=== PATIENT | female | born 1960 | race Caucasian/White ===

== ENCOUNTER 2024-06-04 03:31 | Observation (INO) | payer OTHER ==
[2024-06-04] MEDS ORDERED: morphine SULFATE 4 MG/ML VIAL ONE (03:59)
[2024-06-04] MEDS: morphine CARPU-JECT 4 MG/1 ML DISP.SYRIN IVPUSH ONE (04:20)
[2024-06-04 04:26] LABS: HEMATOCRIT 43.2 % (32.4-45.2); HEMOGLOBIN 14.2 GM/dL (10.7-15.3); MCH 30.2 pg (25.7-33.7); MCHC 32.8 g/dl (32.0-36.0); MEAN CELL VOLUME 91.9 fl (80-96); MEAN PLT VOLUME 8.1 fl (7.5-11.1); PLATELET COUNT 255 10^3/uL (134-434); RDW 14.2 % (11.6-15.6); WHITE BLOOD COUNT 9.5 K/mm3 (4.0-10.0)
[2024-06-04 04:48] LABS: POTASSIUM 4.4 mmol/L (3.5-5.1)
[2024-06-04 04:50] LABS: CALCIUM 9.2 mg/dL (8.5-10.1)
[2024-06-04 04:52] LABS: MAGNESIUM 1.9 mg/dL (1.8-2.4)
[2024-06-04 04:53] LABS: CREATININE 0.7 mg/dL (0.55-1.3)
[2024-06-04 04:55] LABS: BILIRUBIN,TOTAL 0.3 mg/dL (0.2-1); TOT PROT 7.6 g/dl (6.4-8.2)
[2024-06-04 04:56] LABS: PHOSPHOROUS 3.2 mg/dL (2.5-4.9)
[2024-06-04] MEDS ORDERED: ACETAMINOPHEN 500 MG TABLET (FP) PO PRN (05:16)
[2024-06-04 06:21] LABS: LACTIC ACID 3.4 mmol/L (0.4-2.0)
[2024-06-04 06:23] LABS: URINE APPEARANCE Clear; URINE BILIRUBIN Negative (NEGATIVE); URINE COLOR Yellow; URINE GLUCOSE (UA) Negative (NEGATIVE); URINE KETONE Negative (NEGATIVE); URINE LEUK ESTERASE 1+ (NEGATIVE); URINE NITRITE Negative (NEGATIVE); URINE PROTEIN Negative (NEGATIVE); URINE UROBILINOGEN 0.2 mg/dL (0.2-1.0)
[2024-06-04] MEDS: LACTATED RINGERS SOLUTION 1000 ML INFUS.BAG IV ONE (06:55)
[2024-06-04] MEDS: SODIUM CHLORIDE 1,000 ML IV STA (08:00)
[2024-06-04] MEDS ORDERED: MORPHINE SULFATE 2 MG/ML SYRINGE ONE (09:05)
[2024-06-04] MEDS: MORPHINE SULFATE 2 MG/ML SYRINGE IVPUSH PRN (09:13)
[2024-06-04] MEDS: LIDOCAINE 5% TOPICAL PATCH TP SCH (10:14)
[2024-06-04 10:38] LABS: LACTIC ACID 3.7 mmol/L (0.4-2.0)
[2024-06-04] MEDS ORDERED: LOSARTAN POTASSIUM 25 MG TABLET ONE (10:43)
[2024-06-04] MEDS: LOSARTAN POTASSIUM 50 MG TABLET PO SCH (10:52)
[2024-06-04 11:34] LABS: LACTIC ACID 4.2 mmol/L (0.4-2.0)
[2024-06-04] MEDS ORDERED: ACETAMINOPHEN 325 MG TABLET (FP) ONE (12:45)
[2024-06-04] MEDS: ACETAMINOPHEN 500 MG TABLET (FP) PO PRN (12:55)
[2024-06-04 14:05] LABS: LACTIC ACID 3.2 mmol/L (0.4-2.0)
[2024-06-04 14:28] VITALS: BMI 28.9
[2024-06-04] MEDS: POTASSIUM CHLORIDE 10 MEQ in SODIUM CHLORIDE 0.45% 1,000 ML IVPB SCH (18:15)
[2024-06-04] MEDS: LIDOCAINE PATCH REMOVAL MC SCH (21:27)
[2024-06-04] MEDS: PIPERACILLIN/TAZOB 4.5 GM 4.5 GM in DEXTROSE 5%-WATER 100 ML IVPB SCH (22:15)
[2024-06-05] MEDS: oxyCODONE HCL 5 MG TABLET PO PRN (10:43)
[2024-06-05 11:10] LABS: BASO % 0.5 % (0-2.0); EOS % 0.2 % (0-4.5); HEMATOCRIT 41.2 % (32.4-45.2); HEMOGLOBIN 13.5 GM/dL (10.7-15.3); LYMPH % 14.5 % (8-40); MCHC 32.9 g/dl (32.0-36.0); MEAN CELL VOLUME 91.4 fl (80-96); MEAN PLT VOLUME 8.3 fl (7.5-11.1); MONO % 4.4 % (3.8-10.2); NEUT % 80.4 % (42.8-82.8); PLATELET COUNT 245 10^3/uL (134-434); RBC 4.51 M/mm3 (3.60-5.2); RDW 14.1 % (11.6-15.6); WHITE BLOOD COUNT 13.3 K/mm3 (4.0-10.0)
[2024-06-05 11:22] LABS: CHLORIDE 102 mmol/L (98-107); POTASSIUM 3.9 mmol/L (3.5-5.1); SODIUM 137 mmol/L (136-145)
[2024-06-05 11:24] LABS: CALCIUM 8.5 mg/dL (8.5-10.1)
[2024-06-05 11:25] LABS: ALBUMIN 3.4 g/dl (3.4-5.0); ANION GAP 8 mmol/L (4-13); CO2 27 mmol/L (21-32); GLUCOSE,RANDOM 178 mg/dL (74-106)
[2024-06-05 11:28] LABS: CREATININE 0.8 mg/dL (0.55-1.3); SGOT/AST 12 U/L (15-37); SGPT/ALT 18 U/L (13-61)
[2024-06-05] MEDS: LACTATED RINGERS SOLUTION 1,000 ML/1,000 ML INFUS.BAG IV SCH (11:28)
[2024-06-05 11:29] LABS: BILIRUBIN,TOTAL 0.4 mg/dL (0.2-1)
[2024-06-05 11:30] LABS: TOT PROT 6.4 g/dl (6.4-8.2)
[2024-06-05 11:31] LABS: ALK PHOS 92 U/L (45-117)
[2024-06-05 11:55] LABS: ERYTHROCYTE SEDIMENTATION RATE 7 mm/hr (0-30)
[2024-06-06] MEDS: HYDROmorphone HCL CARPU-JECT 2 MG/1 ML DISP.SYRIN IVPUSH ONE (04:23)
[2024-06-06] MEDS: ENOXAPARIN NA (PORCINE) 40 MG/0.4 ML DISP.SYRIN SQ SCH (09:52)
[2024-06-06] MEDS: PIPERACILLIN/TAZOB 4.5 GM 4.5 GM/100 ML BAG IVPB SCH (10:17)
[2024-06-06] MEDS: DEXAMETHASONE SOD PHOSPHATE 10 MG/1 ML VIAL IVPUSH SCH (12:30)
[2024-06-06] MEDS: oxyCODONE HCL 5 MG TABLET PO PRN (15:00)
[2024-06-06] MEDS: PIPERACILLIN/TAZOB 3.375 GM 50 ML IVPB SCH (21:10)
[2024-06-07] MEDS: LOSARTAN POTASSIUM 25 MG TABLET PO SCH (09:26)
[2024-06-07 09:55] LABS: HEMATOCRIT 42.8 % (32.4-45.2); HEMOGLOBIN 14.2 GM/dL (10.7-15.3); MCH 30.5 pg (25.7-33.7); MCHC 33.3 g/dl (32.0-36.0); MEAN CELL VOLUME 91.8 fl (80-96); MEAN PLT VOLUME 8.3 fl (7.5-11.1); PLATELET COUNT 286 10^3/uL (134-434); RBC 4.66 M/mm3 (3.60-5.2); RDW 13.5 % (11.6-15.6); WHITE BLOOD COUNT 6.7 K/mm3 (4.0-10.0)
[2024-06-07 10:12] LABS: POTASSIUM 4.4 mmol/L (3.5-5.1)
[2024-06-07 10:18] LABS: CALCIUM 9.1 mg/dL (8.5-10.1)
[2024-06-07 10:22] LABS: CREATININE 0.6 mg/dL (0.55-1.3)
[2024-06-07] MEDS: LORazepam 2 MG/ML SDV VIAL IVPUSH ONE (22:40)
[2024-06-08] MEDS ORDERED: MECLIZINE HCL 12.5 MG TABLET PO PRN (15:39)
[2024-06-08] MEDS: LORazepam 2 MG/ML SDV VIAL IVPUSH ONE (22:50)
[2024-06-09 07:00] VITALS: RESP 18
[2024-06-09] MEDS: LORazepam 2 MG/ML SDV VIAL IVPUSH ONE (07:00)
[2024-06-09] MEDS: PIPERACILLIN/TAZOB 4.5 GM 4.5 GM in DEXTROSE 5%-WATER 100 ML IVPB SCH (07:39)
[2024-06-09] MEDS: PANTOPRAZOLE 40 MG TABLET PO SCH (09:15)
[2024-06-09] MEDS ORDERED: BISACODYL 5 MG TABLET.DR (FP) PO PRN (12:50)
[2024-06-09] MEDS: POLYETHYLENE GLYCOL (HEALTHYLAX) 3350 17 GM PACKET PO SCH (13:49)
[2024-06-09] MEDS: DULoxetine HCL 20 MG CAPSULE.DR PO SCH (13:49)
[2024-06-09] MEDS: diazePAM 5 MG TABLET PO PRN (14:53)
[2024-06-10] MEDS ORDERED: oxyCODONE HCL 5 MG TABLET PO PRN ×2 (08:18→11:25)
[2024-06-10] MEDS: DEXAMETHASONE SOD PHOSPHATE 10 MG/1 ML VIAL IVPUSH SCH (10:08)
[2024-06-10] MEDS: ACETAMINOPHEN 500 MG TABLET (FP) PO SCH (12:09)
[2024-06-10] MEDS: GABAPENTIN 300 MG CAPSULE PO SCH (14:35)
[2024-06-10] MEDS: oxyCODONE HCL 5 MG TABLET PO PRN (16:37)
[2024-06-12 02:01] VITALS: BP 130/92; PULSE 79; TEMP 97.7
== END 2024-06-12 02:16 ==
LOC: JER 03:31 → JERBED 05:12 → J8W 14:07
PROVIDERS: ADMIT Family Medicine; ATTEND Family Medicine
PROC: 3E033GC Introduction of Other Therapeutic Substance into Peripheral Vein, Percutaneous Approach (ICD-10-PCS; principal; 2024-06-04)
PROC: 3E023GC Introduction of Other Therapeutic Substance into Muscle, Percutaneous Approach (ICD-10-PCS; 2024-06-04)
PROC: 3E033NZ Introduction of Analgesics, Hypnotics, Sedatives into Peripheral Vein, Percutaneous Approach (ICD-10-PCS; 2024-06-04)
PROC: 3E0337Z Introduction of Electrolytic and Water Balance Substance into Peripheral Vein, Percutaneous Approach (ICD-10-PCS; 2024-06-04)
PROC: 3E03329 Introduction of Other Anti-infective into Peripheral Vein, Percutaneous Approach (ICD-10-PCS; 2024-06-04)
DX: E87.20 Acidosis, unspecified (principal); I10 Essential (primary) hypertension; M54.10 Radiculopathy, site unspecified; M54.9 Dorsalgia, unspecified
CPT/HCPCS: 36415; 72110-TC-FY; 72131-TC; 72148-TC; 74177-TC; 80048; 80053; 81003; 83605; 83735; 84100; 84484; 85025; 85027; 85651; 86140; 87040; 87086; 87635; 93005; 93010; 94010; 96361; 96365; 96366; 96372; 96375; 96376; 97116-GP; 97161-GP; 99282-25; 99285-25; G0378; J1100; Q9967